=== PATIENT | female | born 1945 | race Caucasian/White ===

== ENCOUNTER 2021-07-19 08:55 | Outpatient (RCR) | payer MEDICARE, BC, SELFPAY | END 2021-07-21 23:59 | disposition home or self-care (01) | LOC: GPT 08:55 | PROVIDERS: Visit Provider Nurse Practitioner | DX: M25.569 Pain in unspecified knee (principal); Z96.653 Presence of artificial knee joint, bilateral | CPT/HCPCS: 97110; 97162 ==

== ENCOUNTER 2021-07-22 06:00 | Outpatient (RCR) | payer MEDICARE, BC, SELFPAY | END 2021-08-21 23:59 | disposition home or self-care (01) | LOC: GPT 06:00 | PROVIDERS: Visit Provider Nurse Practitioner | DX: Z47.1 Aftercare following joint replacement surgery (principal); Z96.653 Presence of artificial knee joint, bilateral | CPT/HCPCS: 97110; 97112 ==

== ENCOUNTER 2021-08-22 06:00 | Outpatient (RCR) | payer MEDICARE, BC, SELFPAY | END 2021-09-18 23:59 | disposition home or self-care (01) | LOC: GPT 06:00 | PROVIDERS: Visit Provider Nurse Practitioner | DX: Z47.1 Aftercare following joint replacement surgery (principal); Z96.653 Presence of artificial knee joint, bilateral | CPT/HCPCS: 97110 ==

== ENCOUNTER → 2024-09-08 09:15 | Outpatient (BNVA) | payer MEDICARE, BC, SELFPAY | PROVIDERS: PCP Nurse Practitioner; Visit Provider Surgery | DX: R19.5 Other fecal abnormalities (principal); M79.672 Pain in left foot | CPT/HCPCS: 73630; 99204 ==

== ENCOUNTER 2024-09-24 06:04 | Day surgery (SDC) | payer MEDICARE, BC, SELFPAY ==
--- NOTE | 2024-09-24 05:42 | P.HPUD_ITS ---
Surgery/Procedure H&P Update DATE OF PROCEDURE: September 24, 2024 DATE H&P PERFORMED: 09/08/24 H&P UPDATE INFORMATION: I have reviewed H&P completed within last 30 days, I have examined patient prior to procedure, No changes to prior documentation and H&P is in [facility] EMR on date indicated PLANNED PROCEDURE: Operation Date: 09/24/24 07:00 Proposed Procedures p Colonoscopy [id number] G0105 R19.5(Not Applicable) - Yordy Reed MD
[2024-09-24 06:17] VITALS: BP 148/94; PULSE 66; RESP 16; TEMP 36.1; O2SAT 97; BMI 35.5
[2024-09-24] MEDS: sodium chloride 0.9% 1,000 ML 30 ML IV (06:32)
--- NOTE | 2024-09-24 06:57 | ANES.PREANE2 ---
Pre-Anesthetic Assessment Height/Weight: Height 1.7 m Weight 102.965 kg Temp Pulse Resp BP Pulse Ox O2 Del Method 97.0 F L 66 16 148/94 97 Room Air 09/24/24 06:17 09/24/24 06:17 09/24/24 06:17 09/24/24 06:17 09/24/24 06:17 09/24/24 06:17 Preop Diagnosis: + Cologuard Operation Date: 09/24/24 07:00 Proposed Procedures p Colonoscopy 24786 G0105 R19.5(Not Applicable) - Yordy Reed MD Was Beta Lisa taken within 24 hours: N/A Was Clonidine taken within 24 hours: N/A Last intake: Intake Last Liquid Date 09/23/24 Last Liquid Time 21:00 Last Solid Date 09/22/24 Last Solid Time 18:00 Social No alcohol and No tobacco Exam alert, oriented x 3, clear to auscultation bilaterally and regular rate & rhythm Airway Submandibular: within normal limits Cervical ROM: within normal limits Mallampati: Class II Dentition: full History/ROS No significant history except as noted and No significant complaints Pulmonary None reported CV/HEM Coronary Artery Disease (Stents X 3. Last less than a year ago) and Hypertension None reported Hepatic None reported GI None reported Metabolic Thyroid Disease Musc/skel Osteoarthritis/DJD Neuropsych None reported Anesthetic Plan ASA status: 3 Anesthesia: Anesthesia Evaluation and MAC Risk of > 500 ml blood loss (7ml/kg in children): No Medications/Allergies Home Medications ?Medication ?Instructions ?Recorded ?Confirmed ?Last Taken ?Type aspirin 81 mg tablet,delayed 81 mg PO DAILY 09/08/24 09/24/24 09/23/24 History release (Adult Low Dose Aspirin) biotin 10,000 mcg capsule 10,000 mcg PO DAILY 09/08/24 09/24/24 09/23/24 History clopidogrel 75 mg tablet (Plavix) 75 mg PO DAILY 09/08/24 09/24/24 09/20/24 History coenzyme Q10 400 mg capsule (Co 400 mg PO DAILY 09/08/24 09/24/24 09/23/24 History Q-10) furosemide 20 mg tablet 20 mg PO DAILY 09/08/24 09/24/24 09/23/24 History geriatric fpidiaik-loeb-rvnd 1 tab PO DAILY 02/09/24/24 09/23/24 History glucosamine sulfate 500 mg tablet 500 mg PO DAILY 09/08/24 09/24/24 09/23/24 History (Glucosamine) hydralazine 50 mg tablet 50 mg PO BID 09/08/24 09/24/24 09/24/24 History isosorbide dinitrate 30 mg tablet 30 mg PO BID 09/08/24 09/24/24 09/24/24 History levothyroxine 150 mcg capsule 150 mcg PO DAILY 09/08/24 09/24/24 09/24/24 History magnesium hydroxide 400 mg/5 mL 400 mg PO DAILY PRN Constipation 09/08/24 09/24/24 Unknown History oral suspension (Dulcolax (magnesium hydroxide)) nitroglycerin 0.4 mg sublingual 0.4 mg sublingual Q5M PRN Chest 09/08/24 09/24/24 Unknown History tablet Pain omega 8-oex-vpc-fish oil 60 mg-90 1 cap PO DAILY 09/08/24 09/24/24 09/23/24 History mg-500 mg capsule (Fish Oil) potassium 99 mg PO DAILY 09/08/24 09/24/24 09/23/24 History rosuvastatin 20 mg tablet (Crestor) 20 mg PO DAILY 09/08/24 09/24/24 09/23/24 History vitamin B comp and C no.3 15 mg-10 1 cap PO DAILY 09/08/24 09/24/24 09/23/24 History mg-50 mg-5 mg-300 mg capsule (B Complex Plus Vitamin C) zinc acetate 50 mg (zinc) capsule 50 mg PO DAILY 09/08/24 09/24/24 09/23/24 History (Galzin) Allergies Allergy/AdvReac Type Severity Reaction Status Date / Time sulfamethoxazole (From Allergy Severe Thrush Verified 09/24/24 06:16 Bactrim) trimethoprim (From Bactrim) Allergy Severe Thrush Verified 09/24/24 06:16 Penicillins Allergy Intermediate ALGY-Rash Verified 09/24/24 06:16 Current Medications Generic Name Dose Route Start Last Admin Trade Name Freq PRN Reason Stop Dose Admin Sodium Chloride 1,000 mls @ 30 mls/hr 09/24/24 06:30 09/24/24 06:32 Sodium Chloride 0.9% IV 30 mls/hr .Q24H AARON Administration PFSH Anesthesia Social History Smoking and tobacco/nicotine status: never used tobacco/nicotine Data Anesthesia Cardiac Studies: No Data to Display
[2024-09-24 07:30] VITALS: BP 86/64; PULSE 64; RESP 20; TEMP 36.1; O2SAT 98
[2024-09-24 07:53] VITALS: BP 118/64; PULSE 64; RESP 16; O2SAT 98
--- NOTE | 2024-09-24 07:55 | ANE.PACU2 ---
Inpatient post-anesthesia follow up: Airway intact: Yes Vital signs: Temperature 97.0 F Pulse Rate 64 Respiratory Rate 16 Blood Pressure 118/64 Pulse Oximetry 98 Oxygen Delivery Me thod Room Air Oxygen Flow Rate Fraction of Inspir ed Oxygen Hydration adequate: Yes Nausea and vomiting: No Pain level: 1 Mental status: Baseline
== END 2024-09-24 07:59 | disposition home or self-care (01) ==
PROVIDERS: PCP Nurse Practitioner; Visit Provider Surgery
PROC: 0DJD8ZZ Inspection of Lower Intestinal Tract, Via Natural or Artificial Opening Endoscopic (ICD-10-PCS; CPT 45378; principal; 2024-09-24 07:00)
DX: Z12.11 Encounter for screening for malignant neoplasm of colon (principal); D12.4 Benign neoplasm of descending colon; D12.2 Benign neoplasm of ascending colon; K62.1 Rectal polyp; K57.30 Diverticulosis of large intestine without perforation or abscess without bleeding; R19.5 Other fecal abnormalities; I25.10 Atherosclerotic heart disease of native coronary artery without angina pectoris; Z95.5 Presence of coronary angioplasty implant and graft; I10 Essential (primary) hypertension; Z79.82 Long term (current) use of aspirin; Z79.890 Hormone replacement therapy; Z88.0 Allergy status to penicillin; Z88.2 Allergy status to sulfonamides
CPT/HCPCS: 45385; 88305; J2704; J7030

== ENCOUNTER → 2024-10-07 10:17 | Outpatient (BNVA) | payer MEDICARE, BC, SELFPAY | PROVIDERS: PCP Nurse Practitioner; Visit Provider Surgery | DX: Z09 Encounter for follow-up examination after completed treatment for conditions other than malignant neoplasm (principal) | CPT/HCPCS: 99213 ==

== ENCOUNTER → 2025-04-27 11:04 | Outpatient (BNVA) | payer MEDICARE, BC, SELFPAY | PROVIDERS: Family Provider Nurse Practitioner; PCP Nurse Practitioner; Visit Provider Podiatrist Foot & Ankle Surgery | DX: M79.672 Pain in left foot (principal); L60.3 Nail dystrophy; L90.9 Atrophic disorder of skin, unspecified; M77.41 Metatarsalgia, right foot; M77.42 Metatarsalgia, left foot | CPT/HCPCS: 73630; 99213 ==

== ENCOUNTER → 2025-07-05 12:56 | Outpatient (BNVA) | payer MEDICARE, BC, SELFPAY | PROVIDERS: Family Provider Nurse Practitioner; PCP Nurse Practitioner; Visit Provider Nurse Practitioner Family | DX: I78.8 Other diseases of capillaries (principal); L82.0 Inflamed seborrheic keratosis; Z78.9 Other specified health status; L81.4 Other melanin hyperpigmentation; L57.8 Other skin changes due to chronic exposure to nonionizing radiation | CPT/HCPCS: 17110; 99203 ==